=== PATIENT | female | born 1945 | race African-American/Black ===

== ENCOUNTER 2021-02-08 10:03 | Outpatient (CLI) | payer MEDICARE | END 2021-02-08 10:04 | disposition home or self-care (01) | LOC: BICMAMMO 10:03 | PROVIDERS: ATTEND Physician Assistant | DX: Z12.31 Encounter for screening mammogram for malignant neoplasm of breast (principal); Z80.3 Family history of malignant neoplasm of breast | CPT/HCPCS: 77063; 77067 ==

== ENCOUNTER 2022-02-12 12:40 | Outpatient (CLI) | payer MEDICARE | END 2022-02-12 12:41 | disposition home or self-care (01) | LOC: SCSMRI 12:40 | PROVIDERS: ATTEND Anesthesiology Pain Medicine | DX: M47.26 Other spondylosis with radiculopathy, lumbar region (principal) | CPT/HCPCS: 72148 ==

== ENCOUNTER 2023-06-28 10:49 | Outpatient (CLI) | payer MEDICARE | END 2023-06-28 10:50 | disposition home or self-care (01) | LOC: BICMAMMO 10:49 | PROVIDERS: ATTEND Nurse Practitioner Family | DX: Z12.31 Encounter for screening mammogram for malignant neoplasm of breast (principal); Z80.3 Family history of malignant neoplasm of breast | CPT/HCPCS: 77063; 77067 ==